=== PATIENT | male | born 1960 | race Caucasian/White ===

== ENCOUNTER 2018-09-02 17:26 | Emergency (ER) | payer BC ==
[2018-09-02] MEDS ORDERED: Lidocaine 4% Topical Sol 50 ML BOT ONE (17:31)
== END 2018-09-02 18:23 | disposition home or self-care (01) ==
LOC: SCSER 17:26
DX: T16.2XXA Foreign body in left ear, initial encounter (principal); E78.5 Hyperlipidemia, unspecified; Z79.899 Other long term (current) drug therapy; X58.XXXA Exposure to other specified factors, initial encounter
CPT/HCPCS: 69200